=== PATIENT | male | born 1995 | race Two or more races ===

== ENCOUNTER 2020-09-16 15:51 | Emergency (ER) | payer SELFPAY ==
[2020-09-16] MEDS ORDERED: Diphtheria,Pertussis(Acell),Tetanus Vaccine 0.5 ML Syringe IM ONE (16:17)
[2020-09-16] MEDS ORDERED: Lidocaine 1% PF 2 ML SDV INJECT ONE (16:17)
[2020-09-16] MEDS ORDERED: Octyl 2-Cyanoacrylate 1 Tube TOP ONE (16:42)
[2020-09-16] MEDS ORDERED: Octyl 2-Cyanoacrylate 1 Tube ONE (16:42)
--- NOTE | 2020-09-16 16:59 | EDM.PDOC ---
ED HPI GENERAL MEDICAL PROBLEM - General Chief Complaint: Skin Complaint Stated Complaint: SLICED FINGER ON RT HAND Time Seen by Provider: 09/16/20 16:20 - History of Present Illness INITIAL COMMENTS - FREE TEXT/NARRATIVE: HISTORY AND PHYSICAL: History of present illness: Is a 25-year-old gentleman who presents today with a laceration to his right middle finger on a blade in his work bag prior to arrival. Patient reports that he went to the store and try to use skin adhesive however it was continuing to bleed and the skin adhesive did not work. Patient's tetanus status not up-to-date. Patient reports no neurological deficit from the injury. Patient without any other complaints. Review of systems: As per history of present illness and below otherwise all systems reviewed and negative. Past medical history: As per history of present illness and as reviewed below otherwise noncontributory. Surgical history: As per history of present illness and as reviewed below otherwise noncontributory. Social history: No reported history of drug abuse. Family history: As per history of present illness and as reviewed below otherwise noncontributory. Physical exam: This patient was seen and evaluated during the 2019 SARS-CoV-2 novel coronavirus pandemic period. Community viral transmission is ongoing at time of this encounter and the emergency department is operating under pandemic response procedures. Constitutional: Patient is oriented to person, place, and time. Appears well- developed and well-nourished. No distress. HEENT: Moist mucous membranes Head: Normocephalic and atraumatic Eyes: Right eye exhibits no discharge. Left eye exhibits no discharge. No scleral icterus Neck: Normal range of motion. No tracheal deviation present. Cardiovascular: Normal rate and regular rhythm. Pulmonary: Effort normal, no respiratory distress. Abdominal: No distention Musculoskeletal: Normal range of motion Neurologic: Alert and oriented to person, place and time. Skin: [place], warm and dry. Psychiatric: Normal mood and affect. Behavior is normal. Judgment and thought content normal. Nursing note and vital signs have been reviewed Patient's ER physical exam is significant for a 3 cm laceration to the distal aspect of his distal phalanx of his right middle finger. Laceration is over the volar aspect. Patient does have a small amount of active bleeding at this time. Patient is otherwise neurovascularly intact. Diagnostics: [] Therapeutics: [] Assessment and plan: 25-year-old who presents to the ER today secondary to a laceration to his right middle finger. Patient is neurovascular intact. Tourniquet was applied to obtain adequate hemostasis. Dermabond was applied to the 3 cm laceration with good hemostasis. Finger splint will be applied. Finger splint applied secondary to laceration to his right middle finger. Finger splint should remain in place for 7 days. Finger splint will assist with adequate healing and prevent dehiscence of wound. Patient will need a wound check in 2 days if any signs of infection. Reassessment at the time of disposition demonstrates that the patient is in no acute distress. The patient has remained stable throughout the entire ED visit and is without objective evidence for acute process requiring urgent intervention or hospitalization. The patient is stable for discharge, counseling is provided as documented above, discussed symptomatic treatment and specific conditions for return. I have spoken with the patient/caregiver and discussed todays findings, in addition to providing specific details for the plan of care. Questions are answered and there is agreement with the plan. Definitive disposition and diagnosis as appropriate pending reevaluation and review of above. - Related Data Allergies Allergy/AdvReac Type Severity Reaction Status Date / Time No Known Allergies Allergy Verified 09/16/20 16:11 Home Meds: Home Meds . [No Known Home Meds] 09/16/20 [History] Past Medical History - Past Health History Medical/Surgical History: Denies Medical/Surgical History Social & Family History - Recreational Drug Use Recreational Drug Type: Reports: Marijuana/Hashish ED ROS GENERAL - Review of Systems Review Of Systems: See Below ED EXAM, SKIN/RASH Exam: See Below Course - Vital Signs Last Recorded V/S: Last Vital Signs Temp 98.3 F 09/16/20 16:12 Pulse 76 09/16/20 16:12 Resp 18 09/16/20 16:12 BP 120/75 09/16/20 16:12 Pulse Ox 97 09/16/20 16:12 - Orders/Labs/Meds Meds: Medications Discontinued Medications Generic Name Dose Route Start Last Admin Trade Name Freq PRN Reason Stop Dose Admin Diphtheria/Tetanus/Acell Pertussis 0.5 ml 09/16/20 16:17 09/16/20 16:27 Diphtheria,Pertussis(Acell),Tetanus Vaccine 0.5 Ml Syringe IM 09/16/20 16:18 0.5 ml .ONCE ONE Administration Lidocaine HCl 2 ml 09/16/20 16:17 09/16/20 16:28 Lidocaine 1% Pf 2 Ml Sdv INJECT 09/16/20 16:18 2 ml ONETIME ONE Administration Octyl Cyanoacrylate 1 applic 09/16/20 16:42 Octyl 2-Cyanoacrylate 1 Tube TOP 09/16/20 16:43 ONETIME ONE Octyl Cyanoacrylate Confirm 09/16/20 16:42 Octyl 2-Cyanoacrylate 1 Tube Administered 09/16/20 16:43 Dose 1 applic .ROUTE .STK-MED ONE Departure - Departure Time of Disposition: 16:52 Disposition: Home, Self-Care 01 Condition: Good Clinical Impression: Finger laceration - Discharge Information Instructions: Laceration Care, Adult, Tissue Adhesive Wound Care Referrals: PCP,None [Primary Care Provider] - Additional Instructions: You were seen in the ER today secondary to a laceration to your finger. Dermabond has been applied to your laceration. We will place a finger splint over the laceration in order to protect it. Please keep that on for the next 7 days. The following information is given to patients seen in the emergency department who are being discharged to home. This information is to outline your options for follow-up care. We provide all patients seen in our emergency department with a follow-up referral. The need for follow-up, as well as the timing and circumstances, are variable depending upon the specifics of your emergency department visit. If you don't have a primary care physician on staff, we will provide you with a referral. We always advise you to contact your personal physician following an emergency department visit to inform them of the circumstance of the visit and for follow-up with them and/or the need for any referrals to a consulting specialist. The emergency department will also refer you to a specialist when appropriate. This referral assures that you have the opportunity for follow-up care with a specialist. All of these measure are taken in an effort to provide you with optimal care, which includes your follow-up. Under all circumstances we always encourage you to contact your private physician who remains a resource for coordinating your care. When calling for follow-up care, please make the office aware that this follow-up is from your recent emergency room visit. If for any reason you are refused follow-up, please contact the [facility] Emergency Department at and asked to speak to the emergency department charge nurse. [facility] [id number] [address] [id number] Sepsis Event Note (ED) - Evaluation Sepsis Screening Result: No Definite Risk - Focused Exam Vital Signs: Vital Signs Temp Pulse Resp BP Pulse Ox 09/16/20 16:12 98.3 F 76 18 120/75 97
== END 2020-09-16 17:49 | disposition home or self-care (01) ==
LOC: MW.ED 15:51
DX: S61.212A Laceration without foreign body of right middle finger without damage to nail, initial encounter (principal); Z23 Encounter for immunization; W26.8XXA Contact with other sharp object(s), not elsewhere classified, initial encounter
CPT/HCPCS: 12002; 90471; 90715; 99282; A9270